=== PATIENT | male | born 1985 | race Caucasian/White ===

== ENCOUNTER 2017-01-01 19:19 | Emergency (ER) | payer BC ==
--- NOTE | 2017-01-01 19:26 | PDOC ---
History of Present Illness - General History Source: Patient Exam Limitations: No Limitations - History of Present Illness Initial Comments: 01/01/17 19:49 The patient is a 31 year old male, with no significant past medical history, who presents to the emergency department with complaints of possible right shoulder after injuring it in a hockey game just prior to arrival. The patient reports that he was playing ice hockey when he was hit in the right shoulder by an opposing players helmet. He reports that the pain is a 9/10 in severity and he is unable to lift his shoulder up. The patient reports that he one of his shoulder 6 years ago but is not sure if it is the same shoulder. He denies chest pain, shortness of breath, headache and dizziness. He denies fever, chills, nausea, vomit, diarrhea and constipation. He denies any other bodily pain or injury. Allergies: None Social history: Never smoked <Yanci Munguia - Last Filed: 01/01/17 19:48> <Marquis Antonio - Last Filed: 01/02/17 06:36> - General Chief Complaint: Pain, Acute Stated Complaint: HIT IN RIGHT SHOULDER PLAYING [employer] Time Seen by Provider: 01/01/17 19:26 Past History <Yanci Munguia - Last Filed: 01/01/17 19:48> <Marquis Antonio - Last Filed: 01/02/17 06:36> - Past Medical History Allergies/Adverse Reactions: Allergies Allergy/AdvReac Type Severity Reaction Status Date / Time No Known Allergies Allergy Verified 01/01/17 19:21 Home Medications: Ambulatory Orders NK [No Known Home Medication] 01/01/17 Review of Systems - Review of Systems Able to Perform ROS?: Yes Comments:: 01/01/17 19:49 GENERAL/CONSTITUTIONAL: No fever or chills. No weakness. HEAD, EYES, EARS, NOSE AND THROAT: No change in vision. No ear pain or discharge. No sore throat. CARDIOVASCULAR: No chest pain or shortness of breath. RESPIRATORY: No cough, wheezing, or hemoptysis. GASTROINTESTINAL: No nausea, vomiting, diarrhea or constipation. GENITOURINARY: No dysuria, frequency, or change in urination. MUSCULOSKELETAL: +Right shoulder pain No neck or back pain. SKIN: No rash NEUROLOGIC: No headache, vertigo, loss of consciousness, or change in strength/ sensation. ENDOCRINE: No increased thirst. No abnormal weight change. HEMATOLOGIC/LYMPHATIC: No anemia, easy bleeding, or history of blood clots. ALLERGIC/IMMUNOLOGIC: No hives or skin allergy. <Yanci Munguia - Last Filed: 01/01/17 19:48> *Physical Exam - Vital Signs Last Vital Signs Temp Pulse Resp BP Pulse Ox 98.1 F 102 H 18 135/88 95 01/01/17 19:22 01/01/17 19:22 01/01/17 19:22 01/01/17 19:22 01/01/17 19:22 - Physical Exam Comments: 01/01/17 19:50 GENERAL: Awake, alert, and fully oriented, in no acute distress HEAD: No signs of trauma EYES: PERRLA, EOMI, sclera anicteric, conjunctiva clear ENT: Auricles normal inspection, hearing grossly normal, nares patent, oropharynx clear without exudates. Moist mucosa NECK: Normal ROM, supple, no lymphadenopathy, JVD, or masses LUNGS: Breath sounds equal, clear to auscultation bilaterally. No wheezes, and no crackles HEART: Regular rate and rhythm, normal S1 and S2, no murmurs, rubs or gallops ABDOMEN: Soft, nontender, normoactive bowel sounds. No guarding, no rebound. No masses MUSCULOSKELETAL: +Tender over the AC joint EXTREMITIES: no edema. No clubbing or cyanosis. No cords, or erythema NEUROLOGICAL: Cranial nerves II through XII grossly intact. Normal speech, normal gait SKIN: Warm, Dry, normal turgor, no rashes or lesions noted. <Yanci Munguia - Last Filed: 01/01/17 19:48> ED Treatment Course - Medications Given in the ED: ED Medications Discontinued Medications Generic Name Dose Route Start Last Admin Trade Name Freq PRN Reason Stop Dose Admin Ibuprofen 800 mg 01/01/17 19:29 01/01/17 19:29 Motrin - PO 01/01/17 19:30 800 mg NOW ONE Administration <Yanci Munguia - Last Filed: 01/01/17 19:48> Medical Decision Making - Medical Decision Making 01/02/17 06:36 plain films -, as read by me ac joint sprain nsaids <Marquis Antonio - Last Filed: 01/02/17 06:36> *DC/Admit/Observation/Transfer - Attestations Scribe Attestion: 01/01/17 19:51 Documentation prepared by MANJIT Chacko, acting as medical affairs director for Marquis Antonio MD. <Yanci Munguia - Last Filed: 01/01/17 19:48> <Marquis Antonio - Last Filed: 01/02/17 06:36> Diagnosis at time of Disposition: Shoulder sprain Qualifiers: Encounter type: initial encounter Shoulder sprain type: unspecified sprain Laterality: right Qualified Code(s): S43.401A - Unspecified sprain of right shoulder joint, initial encounter - Discharge Dispostion Disposition: HOME Condition at time of disposition: Stable - Patient Instructions Printed Discharge Instructions: DI for Shoulder Sprain
[2017-01-01 19:29] VITALS: BP 135/88; PULSE 102; TEMP 98.1; BMI 33.1
[2017-01-01] MEDS ORDERED: IBUPROFEN 400 MG TABLET (FP) PO ONE (19:29)
== END 2017-01-01 19:50 | disposition home or self-care (01) ==
LOC: FER 19:19
DX: S43.401A Unspecified sprain of right shoulder joint, initial encounter (principal); W51.XXXA Accidental striking against or bumped into by another person, initial encounter; Y93.22 Activity, ice hockey; Y92.9 Unspecified place or not applicable
CPT/HCPCS: 73030-TC-RT; 99281-25